=== PATIENT | male | born 1940 | race Caucasian/White ===

== ENCOUNTER 2022-11-01 11:46 | Day surgery (SDC) | payer MEDICARE ==
[2022-10-29 11:54] LABS: BASOPHILS % (AUTO) 0.6 % (0-1); EOSINOPHILS % (AUTO) 0.8 % (0-6); HEMOGLOBIN 12.8 g/dl (14.0-17.9); LYMPHOCYTES # (AUTO) 0.3 X10'3 (1.1-4.8); MEAN CORPUSCULAR HEMOGLOBIN 30.9 PG (27.0-31.0); MEAN CORPUSCULAR HGB CONC 34.7 g/dL (33.0-36.5); MEAN CORPUSCULAR VOLUME 88.9 FL (78-98); MEAN PLATELET VOLUME 7.2 FL (7.4-10.4); MONOCYTES # (AUTO) 0.3 X10'3 (0-0.9); MONOCYTES % (AUTO) 5.9 % (2-12); NEUTROPHILS # (AUTO) 4.4 X10'3 (1.8-7.7); NEUTROPHILS % (AUTO) 86.7 % (42-75); PLATELET COUNT 142 X10'3 (140-440); RED BLOOD COUNT 4.16 X10'6 (4.70-6.10); RED CELL DISTRIBUTION WIDTH 14.4 % (11.5-14.5); WHITE BLOOD COUNT 5.1 X10'3 (4.5-11.0)
[2022-10-29 12:01] LABS: APTT 27 SECONDS (22-32)
[2022-10-29 12:04] LABS: ALBUMIN 4.1 G/DL (3.4-5.0); ANION GAP 6 (8-16); BLOOD UREA NITROGEN 15 MG/DL (7-18); BUN/CREATININE RATIO 16.1 (10.0-20.0); CALCIUM 9.4 MG/DL (8.5-10.1); CHLORIDE 106 MMOL/L (99-107); CHOL/HDL RATIO 2.8 (0.00-4.99); CHOLESTEROL 116 MG/DL (0-200); CREATININE 0.93 MG/DL (0.60-1.10); GLUCOSE 105 MG/DL (70-104); HDL CHOLESTEROL 42 MG/DL (35-60); LDL CHOLESTEROL 57 MG/DL (50-100); POTASSIUM 4.2 MMOL/L (3.5-5.1); SODIUM 141 MMOL/L (135-145); TOTAL CARBON DIOXIDE 28.7 MMOL/L (24-32); TRIGLYCERIDES 56 MG/DL (20-135); eGFR 77 ML/MIN
[~2022-11-01] VITALS: Ht 172.7 cm; Wt 48.6 kg
[2022-11-01] VITALS (9 sets, daily range): BP systolic 132–162; BP diastolic 62–78
[2022-11-01] MEDS ORDERED: normal saline 1,000 ML IV SCH (12:05)
[2022-11-01] MEDS ORDERED: LORazepam 0.5 MG tablet PO PRN (12:05)
[2022-11-01] MEDS ORDERED: diphenhydrAMINE 25mg capsule PO PRN (12:05)
[2022-11-01] MEDS ORDERED: ASPI-611 PO (12:13)
[2022-11-01] MEDS ORDERED: GABA-581 PO (12:20)
[2022-11-01] MEDS ORDERED: DILT-102 PO (12:20)
[2022-11-01] MEDS ORDERED: PRAV40TA3 PO (12:20)
[2022-11-01] MEDS ORDERED: BICA50TA7 PO (12:20)
[2022-11-01] MEDS ORDERED: FLO0.4C PO (12:23)
[2022-11-01] MEDS ORDERED: OMEP20CA16 (12:23)
[2022-11-01] MEDS ORDERED: OMEP20CA16 PO (12:26)
[2022-11-01] MEDS ORDERED: omeprazole PO (12:26)
[2022-11-01] MEDS ORDERED: NITR0.4T48 (12:27)
[2022-11-01] MEDS ORDERED: CLOP75TA34 PO (12:27)
[2022-11-01] MEDS ORDERED: midazolam 1 mg/ML 2ml injection ONE (15:31)
[2022-11-01] MEDS ORDERED: nitroGLYCERIN-Tridil 50MG/D5W 250 ML IV ONE (15:31)
[2022-11-01] MEDS ORDERED: verapamil 2.5 mg/ml inj IV ONE (15:31)
[2022-11-01] MEDS ORDERED: fentaNYL/PF 50MCG/1 ML 2ML syringe ONE (15:31)
[2022-11-01] MEDS ORDERED: iohexol 350MG/ML 100ml bottle IV ONE ×2 (15:32→16:00)
[2022-11-01] MEDS ORDERED: heparin 1,000unit/ml 10ml vial 10 ML ONE (15:32)
[2022-11-01] MEDS ORDERED: LIDOcaine 1% (10mg/ml) 2ml vial ONE (15:32)
[2022-11-01] MEDS ORDERED: aspirin 325mg tablet ONE (16:21)
[2022-11-01] MEDS ORDERED: clopidogrel 300mg tablet ONE (16:22)
[2022-11-01] MEDS ORDERED: HYDROcodone/acetaminophen 5mg/325mg tablet PO PRN (17:15)
[2022-11-01] MEDS ORDERED: HYDROcodone/acetaminophen 10/325mg tab PO PRN (17:15)
== END 2022-11-01 18:55 | disposition home or self-care (01) ==
LOC: SSTAY O 11:46
PROVIDERS: ATTEND Student in an Organized Health Care Education/Training Program
DX: R07.89 Other chest pain (principal); I25.10 Atherosclerotic heart disease of native coronary artery without angina pectoris; E78.5 Hyperlipidemia, unspecified; I10 Essential (primary) hypertension; Z86.73 Personal history of transient ischemic attack (TIA), and cerebral infarction without residual deficits; K21.9 Gastro-esophageal reflux disease without esophagitis; Z88.8 Allergy status to other drugs, medicaments and biological substances; Z85.46 Personal history of malignant neoplasm of prostate
CPT/HCPCS: 36415; 80048; 80061; 85025; 85610; 85730; 93005; 93458; 99152; 99153; A6258; C1725; C1751; C1769; C1874; C1894; C9600; J1644; J2250; J3010; J3490; J7030; Q0163; Q9967; A6402